=== PATIENT | male | born 1990 | race African-American/Black ===

== ENCOUNTER 2024-04-12 22:09 | Emergency (ER) | payer OTHER, SELFPAY ==
[2024-04-12 22:17] VITALS: BP 130/89; BMI 28.6
--- NOTE | 2024-04-13 02:47 | ED.MUSCINJ ---
HPI-Injury
General
Chief Complaint: Musculo-Skeletal Complaint
Source: patient and ambulance crew
Exam Limitations: none
Time Seen by Provider: 04/13/24 02:31
Nursing documentation reviewed up to this point in time: agreed with
History of Present Illness-Injury
Initial Injury comments:
34-year-old male presents emergency department with bilateral knee pain. He feels like he strained it when he was dancing. He denies falling. He walked into the emergency department without difficulty.
Past History
Past History
ED Past Medical History: Asthma and Psychiatric (Schizophrenia)
Social History
Tobacco: Non-smoker
Personal: Single
Review of Systems
Review of Systems
Allergies reviewed?: Yes
All Other Systems: Not applicable
Constitutional: Reports no symptoms
EENT: Reports no symptoms
Respiratory: Reports no symptoms
Cardiac: Reports no symptoms
ABD/GI: Reports no symptoms
: Reports no symptoms
Musculoskeletal: Reports joint pain and muscle pain
Skin: Reports no symptoms
Neurological: Reports no symptoms
Endocrine: Reports no symptoms
Hematologic/Lymphatic: Reports no symptoms
Psychiatric: Reports no symptoms
Phy Exam
Physical Exam
Physical Exam:
Physical Exam
General: no apparent distress, not acutely ill
Neck: supple. no meningeal signs. normal posterior pharynx
Heart: equal radial pulses.
HEENT: Pupils equal round reactive to light, EOMI
Lungs: no acute respiratory distress.
Abdomen: normal bowel sounds. not tender. no CVAT
Neuro: alert and oriented. no focal neurological deficits cranial nerves II through XII intact
Skin: no rash
Psychiatric: well kept. interactive and cooperative
Extremities: no edema. no calf tenderness. negative homans. good distal pulses, full range of motion in bilateral knees. Ambulates that difficulty
Injury Course
Orders/Labs/Results
Orders:
Orders
04/13/24 02:47
Ibuprofen [Motrin] 800 mg PO NOW STA
MDM/Problems Addressed
Differential Diagnosis Includes:
Knee sprain, DVT
MDM/Problems Addressed:
34-year-old male with likely muscle strain versus knee sprain. Stable for discharge. Do not suspect DVT or fracture. No signs of dislocation.
Chronic conditions affecting care: Psychiatric illness
*Pulse Oximetry
Patient hypoxic: no
*Critical Care Note
Total Time (30-74mins, 75-104mins- exclusive of procedures): Not Applicable
Data Reviewed
Further Testing Considered But Not Given:
X-ray and ultrasound not indicated
Patient Management
Social determinants of health affecting care: Living situation and Strong social support
Escalation/DeEscalation of care consider admission/obs:
Admission not indicated
ED Attending Note
-
Portions of this chart may have been created with voice recognition software.� Occasional wrong word or��sound alike� substitutions may have occurred due to the inherent limitations of voice recognition software.
Discharge Plan
Departure
Patient Disposition: Other
Date of Disposition: 04/13/24
Time of Disposition: 03:12
Patient with high blood pressure during this ER visit?: Yes
Condition: Good
Discharge Problem:
Acute bilateral knee pain
Instructions: Knee Sprain (DC), BLOOD PRESSURE
Prescriptions:
No Action
azithromycin [Zithromax] 250 MG tablet
250 mg PO UD Qty: 1 0RF
Referrals:
Melida Frazier CRNP [Primary Care Provider] - Call in 1-3 days for appt
Interventions
Interventions:
*Risk Screen - Suicide Last Done: 04/12/24 22:21
*General Assessment Last Done: 04/12/24 22:21
*Neglect/Abuse Screening Last Done: 04/12/24 22:21
ED- Fall Risk Assessment Last Done: 04/12/24 22:22
*ED COVID-19 Vaccine History Last Done: 04/12/24 22:21
ED-Musculoskeletal Assessment Last Done: 04/12/24 22:21
Discharge Date and Time
Print Language: YORUBA
[2024-04-13] MEDS: MOTRIN 800 MG PO (03:00)
[2024-04-13 04:17] VITALS: BP 133/73
== END 2024-04-13 04:30 | disposition other institution (70) ==
LOC: EMR 22:09
PROVIDERS: EMERGENCY PHYSICIAN Emergency Medicine; PRIMARYCARE PHYSICIAN Nurse Practitioner Family
DX: M25.562 Pain in left knee (principal); M25.561 Pain in right knee; J45.909 Unspecified asthma, uncomplicated
CPT/HCPCS: 99282

== ENCOUNTER 2024-08-13 17:04 | Emergency (ER) | payer OTHER, SELFPAY ==
[2024-08-13 17:06] VITALS: BMI 27.2
[2024-08-13 17:08] VITALS: BP 142/94
[2024-08-13] MEDS: NSS 1000 IV (17:16)
[2024-08-13 17:21] LABS: % Basophils 0.3 % (0-2); % Immature Granulocytes 0.4 % (0-0.5); % Lymphocytes 32.5 % (20.5-51.1); % Monocytes 8.3 % (1.7-9.3); % Neutrophils 55.5 % (42.2-75.2); Absolute Eosinophils 0.2 10^3/uL (0-0.7); Absolute Lymphocytes 2.2 10^3/uL (1.2-3.4); Absolute Monocytes 0.6 10^3/uL (0.1-0.6); Absolute Neutrophils 3.7 10^3/uL (1.4-6.5); Hematocrit 41.5 % (39.0-52.0); Hemoglobin 14.4 g/dL (13.0-18.0); Mean Corp Hgb Conc. 34.7 g/dL (33.0-37.0); Mean Corpuscular Volume 86.5 fL (80.0-94.0); Mean Platelet Volume 10.6 fL (7.4-10.4); Nucleated Red Blood Cells % 0 % (-); Platelet Count 237 10^3/uL (130-400); Red Cell Dist. Width 12.8 % (11.5-14.5); White Blood Cell Count 6.7 10^3/uL (4.8-10.8)
[2024-08-13 17:34] LABS: ALT (SGPT) 17 U/L (0-50); AST (SGOT) 24 U/L (17-59); Albumin 4.4 g/dl (3.5-5.0); Alkaline Phosphatase 60 U/L (38-126); Blood Urea Nitrogen 12 mg/dl (9-20); Calcium 9.1 mg/dl (8.4-10.2); Carbon Dioxide 29 mmol/L (22-30); Chloride 106 mmol/L (98-107); Estimated Creatinine Clearance > 125 ml/min; Glucose 94 mg/dl (70-99); Potassium 3.8 mmol/L (3.5-5.1); Sodium 138 mmol/L (135-145); Total Bilirubin 0.5 mg/dl (0.2-1.3); eGFR > 60.00
[2024-08-13] MEDS: TORADOL 15 MG IV (17:41)
[2024-08-13 17:45] LABS: Lithium 0.5 mmol/L (0.6-1.2)
--- NOTE | 2024-08-13 17:45 | ED.GENMED ---
History of Present Illness
General
Chief Complaint: Headache
Source: patient and records
Exam Limitations: none
Time Seen by Provider: 08/13/24 17:31
Nursing documentation reviewed up to this point in time: agreed with
History of Present Illness
History of Present Illness:
34-year-old male with history of schizophrenia and asthma who presents to the emergency department from [facility] for evaluation of headache and bodyaches. Patient reports symptoms started this morning and have been constant. He reports mild
right-sided headache and associated stiffness and achiness in his body particularly in his shoulders. He denies any eye pain, change in his visions or speech. He denies any neck pain or stiffness. He denies any fever or chills. He has not had
any congestion or sore throat. He denies any trauma or injuries. No known sick contacts.
Past History
Past History
ED Past Medical History: Asthma and Psychiatric (Schizophrenia)
Social History
Tobacco: Non-smoker
Personal: Single
Review of Systems
Review of Systems
All Other Systems: ROS reviewed and negative except as documented in HPI and ROS
Constitutional: Reports fatigue; Denies fever or chills
Respiratory: Denies trouble breathing
Cardiac: Denies chest pain
ABD/GI: Denies abdominal pain or vomiting
: Denies flank pain
Musculoskeletal: Reports muscle pain and muscle stiffness; Denies neck pain
Neurological: Reports headache; Denies dizzy, weakness or numbness
Phy Exam
Physical Exam
Physical Exam:
General: Awake, alert, oriented x3; somewhat bizarre affect but in no acute distress
Head: Normocephalic, atraumatic
Eyes: Conjunctiva normal, EOMI, pupils equal round and reactive to light bilaterally
Throat: Airway intact, handling secretions, no tonsillar erythema or exudate
Neck: Trachea midline, supple without meningismus
Lungs: Clear to auscultation bilaterally, no wheezing, rales, rhonchi
Heart: Regular rate and rhythm, no murmurs, gallops, or rubs
Abd: Soft, non distended, nontender
Neuro: Cranial nerves intact 2 through 12, speech is fluid there is no dysarthria or aphasia, motor and sensory intact in all extremities, ambulatory with no ataxia
Extremities: No edema in extremities, warm and well-perfused
Scores
Heart Failure Risk
Heart Failure Risk Score: Not Applicable
Heart Score for Chest Pain Patients
STEMI patient?: Not applicable
Withdrawal Assessment of Alcohol
Withdrawal Assessment Completed?: Not applicable
Course
Orders/Labs/Results
Orders:
Orders
08/13/24 17:13
Complete Blood Count/With Diff Urgent
08/13/24 17:14
Comprehensive Metabolic Panel Urgent
Creatine Phosphokinase Urgent
Comment: ADD ON
[facility] Urgent
08/13/24 17:15
0.9% Sodium Chloride 1000 ml [Nss] 1,000 ml IV BOLUS
08/13/24 17:35
Ketorolac [Toradol] 15 mg IV NOW STA
08/13/24 17:46
COVID-19 Antigen Urgent
Source: Nasal Swab
Influenza A+B Rapid Molecular Urgent
CLEMENTE Source: Nasal Swab
Specimen Description:
08/13/24 17:49
Add On- LAB Urgent
Tests Added?: CPK
Abnormal Lab Results
08/13/24 08/13/24
17:13 17:14
MPV 10.6 H fL
(7.4-10.4)
[place] [facility] 0.5 L mmol/L
(0.6-1.2)
08/13/24 17:13
08/13/24 17:14
Vital Signs
Initial and Last Documented VS:
Initial Vital Signs
Temp Pulse Resp Pulse Ox
37.4 C 58 18 100
08/13/24 17:06 08/13/24 17:06 08/13/24 17:06 08/13/24 17:06
Last Documented Vital Signs
Temp Pulse Resp BP Pulse Ox
37.4 C 65 18 147/97 100
08/13/24 17:06 08/13/24 18:00 08/13/24 17:06 08/13/24 18:11 08/13/24 18:11
MDM/Problems Addressed
Differential Diagnosis Includes:
Viral syndrome, tension headache, migraine headache, sinus headache
MDM/Problems Addressed:
34-year-old male presents for evaluation of headache and myalgias today; vitals and exam as above. He had lab work sent in triage including a CBC and a CMP which were unremarkable. Will add CPK. Add lithium level. Will provide fluids and Toradol
for symptomatic treatment. Headache is reportedly mild and he has normal mental status, normal neurologic exam�in my judgment very low suspicion for emergent intracranial pathology and no indication for emergent head imaging. While he has had some
myalgias and achiness he denies neck pain or stiffness and has no fever or meningeal signs on exam and in my judgment no indication for emergent lumbar puncture. Suspect this is likely either an early viral syndrome or perhaps tension headache.
Will reassess after the above.
Patient feeling better after Toradol and fluids says his headache is resolved. He is awake and alert with reassuring exam, tolerating p.o. food tray here. Stable for discharge. Patient is happy with this plan. All questions answered.
*Pulse Oximetry
Patient hypoxic: no
*Critical Care Note
Total Time (30-74mins, 75-104mins- exclusive of procedures): Not Applicable
Data Reviewed
Source: patient and records
Further Testing Considered But Not Given:
Considered CT head, considered lumbar puncture
ED Attending Note
-
Portions of this chart may have been created with voice recognition software.� Occasional wrong word or��sound alike� substitutions may have occurred due to the inherent limitations of voice recognition software.
Discharge Plan
Departure
Patient Disposition: Home (Routine Discharge)
Date of Disposition: 08/13/24
Time of Disposition: 18:37
Patient with high blood pressure during this ER visit?: Yes
Discharge Problem:
Headache
Instructions: Headache, Adult (DC)
Prescriptions:
No Action
azithromycin [Zithromax] 250 MG tablet
250 mg PO UD Qty: 1 0RF
Referrals:
UNKNOWN - PT DOES,NOT KNOW [Family Provider]
Activity Restrictions/Additional Instructions:
Thank you for visiting the Emergency Department at [facility].
1. Please schedule a follow up appointment as directed. Call first thing tomorrow morning to make an appointment.
2. If indicated, please take your medications as instructed and indicated on discharge paperwork.
3. If any of your symptoms do not improve, or persist, or become more severe within 6-12 hours, please return to the emergency department for further care.
4. Please return to the emergency department if you develop a headache, neck pain/stiffness, fever greater than 100.4F, chest pain, shortness of breath, persistent nausea, vomiting, slurred speech, difficulty walking, numbness/tingling, weakness,
signs of infection or any other symptoms that are worrisome to you.
Please call [phone] if you have any questions.
Interventions
Interventions:
*Risk Screen - Suicide Last Done: 08/13/24 17:10
*General Assessment Last Done: 08/13/24 17:06
*Neglect/Abuse Screening Last Done: 08/13/24 17:10
*ED- Fall Risk Assessment Last Done: 08/13/24 17:06
*ED COVID-19 Vaccine History Last Done: 08/13/24 17:06
ED- Neurological Assessment Last Done: 08/13/24 17:11
Discharge Date and Time
Print Language: ICELANDIC
[2024-08-13 18:11] VITALS: BP 147/97
[2024-08-13 18:16] LABS: COVID-19 Antigen Negative (Negative)
[2024-08-13 19:00] VITALS: BP 141/77
[2024-08-13 19:00] LABS: Creatine Phosphokinase 346 U/L (55-170)
== END 2024-08-14 00:48 | disposition home or self-care (01) ==
LOC: EMR 17:04
PROVIDERS: Student in an Organized Health Care Education/Training Program; EMERGENCY PHYSICIAN Emergency Medicine
DX: R51.9 Headache, unspecified (principal); M79.10 Myalgia, unspecified site; Z11.52 Encounter for screening for COVID-19; R03.0 Elevated blood-pressure reading, without diagnosis of hypertension; F20.9 Schizophrenia, unspecified; J45.909 Unspecified asthma, uncomplicated; Z88.8 Allergy status to other drugs, medicaments and biological substances
CPT/HCPCS: 99284; 96374; 96361; 80053; 80178; 82550; 85025; 87502; 87811